=== PATIENT | female | born 1990 | race Caucasian/White ===

== ENCOUNTER 2017-04-18 17:11 | Emergency (ER) | payer OTHER ==
[~2017-04-18] VITALS: Ht 165.1 cm; Wt 90.3 kg
[2017-04-18 21:35] VITALS: BP 118/65
== END 2017-04-18 22:22 | disposition home or self-care (01) ==
LOC: ED 17:11
DX: O20.0 Threatened abortion (principal); Z3A.00 Weeks of gestation of pregnancy not specified; Z88.0 Allergy status to penicillin